=== PATIENT | male | born 1975 | race Caucasian/White ===

== ENCOUNTER 2016-09-04 11:47 | Emergency (ER) | payer SELFPAY ==
[~2016-09-04] VITALS: Ht 167.6 cm; Wt 79.5 kg
[2016-09-04 11:50] VITALS: BP 121/64; PULSE 51; PULSE 57; RESP 20; TEMP 98.1; O2SAT 97
--- NOTE | 2016-09-04 12:26 | PD ---
HPI Chief Complaint: Flank/Kidney Pain Time Seen by Provider: 12:26 Travel History International Travel<30 days: No Contact w/Intl Traveler<30days: No Traveled to known affect area: No History of Present Illness HPI 40-year-old male presents to the emergency Department with complaint of right- sided flank pain and right lower quadrant abdominal pain that started yesterday. Vision has history of right-sided kidney stones and pain is consistent with passed kidney stone pain. Pain is constant and worsening. Patient reports decreased urine output and dysuria. This is only getting drops of urine. No change in stool. Denies fever. Reports nausea with vomiting today. Has not taken any medications or tried any treatments to relieve his symptoms. History of kidney stones. Does not have an established primary care provider. Denies allergies. No other modifying Factors or associated signs and symptoms. PFSH Past Medical History Kidney Stones: Yes Tetanus Vaccination: > 5 Years Influenza Vaccination: No Past Surgical History Surgical History: No Previous Surgery Social History Alcohol Use: No Tobacco Use: Yes (CHEWING TOBACCO) Substance Use: No Allergies-Medications (Allergen,Severity, Reaction): Coded Allergies: No Known Allergies (Unverified , 09/04/16) Reported Meds & Prescriptions Reported Meds & Active Scripts Active Phenergan (Promethazine HCl) 25 Mg Tab 25 Mg PO Q6H PRN [place] (Hydrocodone-Acetaminophen) 5-325 mg Tab 1 Tab PO Q4H PRN Review of Systems Except as stated in HPI: all other systems reviewed are Neg Physical Exam Narrative GENERAL: Well-nourished, well-developed male patient, in no acute distress SKIN: Warm and dry. No rash. HEAD: Atraumatic. Normocephalic. EYES: Pupils equal and round. No scleral icterus. No injection or drainage. ENT: Mucosa pink and moist. NECK: Trachea midline. CARDIOVASCULAR: Regular rate and rhythm. No murmur appreciated. RESPIRATORY: No accessory muscle use. Clear to auscultation. Breath sounds equal bilaterally. GASTROINTESTINAL: Abdomen soft, right lower quadrant tenderness on palpation, nondistended. Hepatic and splenic margins not palpable. Bowel sounds are active 4 quadrants. Bladder nontender and nondistended. MUSCULOSKELETAL: No obvious deformities. No clubbing. No cyanosis. No edema. BACK: Right CVA tenderness NEUROLOGICAL: Awake and alert. Oriented 3. No obvious cranial nerve deficits. Motor grossly within normal limits. Normal speech. Moves all extremities. 5/5 strength to all extremities. PSYCHIATRIC: Appropriate mood and affect; insight and judgment normal. Data Data Last Documented VS Vital Signs Date Time Temp Pulse Resp B/P Pulse Ox O2 Delivery O2 Flow Rate FiO2 09/04/16 14:00 52 18 94/54 97 Room Air 09/04/16 11:50 98.1 Orders Ketorolac Inj (Toradol Inj) (09/04/16 12:30) Complete Blood Count With Diff (09/04/16 12:26) Comprehensive Metabolic Panel (09/04/16 12:26) Urinalysis - C+S If Indicated (09/04/16 12:26) Ct Abd/Pel W/O Iv Contrast (09/04/16 12:26) Iv Access Insert/Monitor (09/04/16 12:26) Ecg Monitoring (09/04/16 12:26) Oximetry (09/04/16 12:26) Ondansetron Inj (Zofran Inj) (09/04/16 12:30) Labs Laboratory Tests Test 09/04/16 12:50 White Blood Count 14.6 TH/MM3 Red Blood Count 4.72 MIL/MM3 Hemoglobin 14.7 GM/DL Hematocrit 41.6 % Mean Corpuscular Volume 88.0 FL Mean Corpuscular Hemoglobin 31.0 PG Mean Corpuscular Hemoglobin 35.2 % Concent Red Cell Distribution Width 12.1 % Platelet Count 249 TH/MM3 Mean Platelet Volume 8.1 FL Neutrophils (%) (Auto) 84.7 % Lymphocytes (%) (Auto) 7.8 % Monocytes (%) (Auto) 6.6 % Eosinophils (%) (Auto) 0.6 % Basophils (%) (Auto) 0.3 % Neutrophils # (Auto) 12.4 TH/MM3 Lymphocytes # (Auto) 1.1 TH/MM3 Monocytes # (Auto) 1.0 TH/MM3 Eosinophils # (Auto) 0.1 TH/MM3 Basophils # (Auto) 0.0 TH/MM3 CBC Comment DIFF FINAL Differential Comment Urine Color YELLOW Urine Turbidity CLEAR Urine pH 6.0 Urine Specific [place] 1.029 Urine Protein TRACE mg/dL Urine Glucose (UA) NEG mg/dL Urine Ketones TRACE mg/dL Urine Occult Blood MOD Urine Nitrite NEG Urine Bilirubin NEG Urine Urobilinogen LESS THAN 2.0 MG/DL Urine Leukocyte Esterase NEG Urine RBC 2 /hpf Urine WBC 2 /hpf Urine Calcium Oxalate Crystals OCC /hpf Urine Mucus FEW /lpf Microscopic Urinalysis Comment CULT NOT INDICATED Sodium Level 137 MEQ/L Potassium Level 4.1 MEQ/L Chloride Level 102 MEQ/L Carbon Dioxide Level 26.8 MEQ/L Anion Gap 8 MEQ/L Blood Urea Nitrogen 23 MG/DL Creatinine 1.74 MG/DL Estimat Glomerular Filtration 44 ML/MIN Rate Random Glucose 128 MG/DL Calcium Level 8.7 MG/DL Total Bilirubin 0.5 MG/DL Aspartate Amino Transf 18 U/L (AST/SGOT) Alanine Aminotransferase 31 U/L (ALT/SGPT) Alkaline Phosphatase 50 U/L Total Protein 7.0 GM/DL Albumin 4.0 GM/DL [facility] Medical Decision Making Medical Screen Exam Complete: Yes Emergency Medical Condition: Yes Medical Record Reviewed: Yes Differential Diagnosis Cholelithiasis, appendicitis, pyelonephritis Narrative Course 40-year-old male with right flank pain and right lower quadrant abdominal pain. Patient arrived via EMS. IV site and fluid bolus running upon arrival. Patient placed on cardiopulmonary monitoring. Labs ordered. CT abdomen ordered. 1330: WBC 14.6. BUN 23. Creatinine 1.74. GFR 44. Urinalysis with no signs of infection; with calcium oxylate crystal and urine occult blood; urine RBCs 2. Last 24 hours Impressions Abdomen/Pelvis CT 09/04/16 1226 Signed Impressions: Service Date/Time: Sunday, September 04, 2016 14:04 - CONCLUSION: 1. The examination demonstrates a 6 mm stone in the distal right ureter. This is approximately 5-7 CM above the ureterovesicular junction. There are moderate post obstructive changes around the right kidney. Blaze Gonzalez MD The patient was discharged home with Phenergan and [place]. Scripts Promethazine (Phenergan)25 Mg Tab25 Mg PO Q6H PRN (Nausea/Vomiting) #10 TAB Ref 0 Prov:Aixa Mike MD 09/04/16 Hydrocodone-Acetaminophen ([place])5-325 mg Tab1 Tab PO Q4H PRN (PAIN) #20 TAB Ref 0 Prov:Aixa Mike MD 09/04/16 [place] Sep 04, 2016 12:26
[2016-09-04] MEDS ORDERED: ONDANSETRON HCL 4 MG/2 ML VIAL IV PUSH ONE (12:30)
[2016-09-04] MEDS ORDERED: KETOROLAC TROMETHAMINE 30 MG/ML (IVP) VIAL IV PUSH ONE (12:30)
[2016-09-04 13:00] VITALS: BP 105/55; PULSE 56; RESP 18; O2SAT 97
[2016-09-04 13:05] LABS: AUTOMATED NEUTROPHIL # 12.4 TH/MM3 (1.8-7.7); BASOPHIL % 0.3 % (0.0-2.0); EOSINOPHIL # 0.1 TH/MM3 (0-0.4); EOSINOPHIL % 0.6 % (0.0-4.0); HEMATOCRIT 41.6 % (39.0-51.0); HEMO FLAGS DIFF FINAL; LYMPH % 7.8 % (9.0-44.0); LYMPHOCYTE # 1.1 TH/MM3 (1.0-4.8); MEAN CORPUSCULAR HGB CONC 35.2 % (32.0-36.0); MONO % 6.6 % (0.0-8.0); NEUT % 84.7 % (16.0-70.0); PLATELET COUNT 249 TH/MM3 (150-450); RED BLOOD COUNT 4.72 MIL/MM3 (4.50-5.90); RED CELL DISTRIBUTION WIDTH 12.1 % (11.6-17.2); WHITE BLOOD COUNT 14.6 TH/MM3 (4.0-11.0)
[2016-09-04 13:13] LABS: BLOOD, URINE MOD (NEG); CALCIUM OXALATE CRYSTALS,URINE OCC /hpf; COMMENT (UR) CULT NOT INDICATED; CULTURE IF INDICATED CULT NOT INDICATED; GLUCOSE,URINE NEG (NEG); KETONE, URINE TRACE mg/dL (NEG); MUCUS URINE FEW /lpf (OCC); NITRITE,URINE NEG (NEG); URINE COLOR YELLOW (YELLW/STRAW)
--- NOTE | 2016-09-04 13:16 | PD ---
Data Data Last Documented VS Vital Signs Date Time Temp Pulse Resp B/P Pulse Ox O2 Delivery O2 Flow Rate FiO2 09/04/16 13:00 56 18 105/55 97 Room Air 09/04/16 11:50 98.1 Orders Ketorolac Inj (Toradol Inj) (09/04/16 12:30) Complete Blood Count With Diff (09/04/16 12:26) Comprehensive Metabolic Panel (09/04/16 12:26) Urinalysis - C+S If Indicated (09/04/16 12:26) Ct Abd/Pel W/O Iv Contrast (09/04/16 12:26) Iv Access Insert/Monitor (09/04/16 12:26) Ecg Monitoring (09/04/16 12:26) Oximetry (09/04/16 12:26) Ondansetron Inj (Zofran Inj) (09/04/16 12:30) Labs Laboratory Tests Test 09/04/16 12:50 White Blood Count 14.6 TH/MM3 Red Blood Count 4.72 MIL/MM3 Hemoglobin 14.7 GM/DL Hematocrit 41.6 % Mean Corpuscular Volume 88.0 FL Mean Corpuscular Hemoglobin 31.0 PG Mean Corpuscular Hemoglobin 35.2 % Concent Red Cell Distribution Width 12.1 % Platelet Count 249 TH/MM3 Mean Platelet Volume 8.1 FL Neutrophils (%) (Auto) 84.7 % Lymphocytes (%) (Auto) 7.8 % Monocytes (%) (Auto) 6.6 % Eosinophils (%) (Auto) 0.6 % Basophils (%) (Auto) 0.3 % Neutrophils # (Auto) 12.4 TH/MM3 Lymphocytes # (Auto) 1.1 TH/MM3 Monocytes # (Auto) 1.0 TH/MM3 Eosinophils # (Auto) 0.1 TH/MM3 Basophils # (Auto) 0.0 TH/MM3 CBC Comment DIFF FINAL Differential Comment Urine Color YELLOW Urine Turbidity CLEAR Urine pH 6.0 Urine Specific [place] 1.029 Urine Protein TRACE mg/dL Urine Glucose (UA) NEG mg/dL Urine Ketones TRACE mg/dL Urine Occult Blood MOD Urine Nitrite NEG Urine Bilirubin NEG Urine Urobilinogen LESS THAN 2.0 MG/DL Urine Leukocyte Esterase NEG Urine RBC 2 /hpf Urine WBC 2 /hpf Urine Calcium Oxalate Crystals OCC /hpf Urine Mucus FEW /lpf Microscopic Urinalysis Comment CULT NOT INDICATED Sodium Level 137 MEQ/L Potassium Level 4.1 MEQ/L Chloride Level 102 MEQ/L Carbon Dioxide Level 26.8 MEQ/L Anion Gap 8 MEQ/L Blood Urea Nitrogen 23 MG/DL Creatinine 1.74 MG/DL Estimat Glomerular Filtration 44 ML/MIN Rate Random Glucose 128 MG/DL Calcium Level 8.7 MG/DL Total Bilirubin 0.5 MG/DL Aspartate Amino Transf 18 U/L (AST/SGOT) Alanine Aminotransferase 31 U/L (ALT/SGPT) Alkaline Phosphatase 50 U/L Total Protein 7.0 GM/DL Albumin 4.0 GM/DL MDM Supervised Visit with [facility]: Yes Narrative Course I, Dr. Mike, have reviewed the advance practice practioner's documentation and am in agreement, met with the patient face to face, made the diagnosis, and the medical decision making was done by me. *My assessment and Findings: 40-year-old male with history of ureterolithiasis here with complaint of right sided flank pain that radiates in the abdomen times one day. Associated nausea, vomiting. Bowel movements regular. Patient states that this is similar to his history of stones, but the pain in the abdomen seems to be worse. No fevers or chills. No previous abdominal surgery. Patient does have some right sided CVA tenderness but point tenderness greatest at [place]Burney's. Differential includes ureterolithiasis, UTI/ pyelonephritis, appendicitis and less likely hepatobiliary pathology laboratory workup notable for mild leukocytosis of 14. Urine with scant blood and oxalate crystals. CT with a 6 mm stone in the right distal ureter. Moderate postobstructive changes. Patient's symptoms are controlled and he will be discharged home with outpatient urology follow-up and symptomatic management. Diagnosis Primary Impression: Ureterolithiasis Referrals: Chau Srivastava MD as needed Urologist as needed Additional Instruction: Pain and nausea medications as needed. Follow-up with urologist if symptoms persist and return to the ER for the warning signs discussed. Med/Other Pt SpecificInfo: Prescription(s) given Scripts Promethazine (Phenergan)25 Mg Tab25 Mg PO Q6H PRN (Nausea/Vomiting) #10 TAB Ref 0 Prov:Aixa Mike MD 09/04/16 Hydrocodone-Acetaminophen ([place])5-325 mg Tab1 Tab PO Q4H PRN (PAIN) #20 TAB Ref 0 Prov:Aixa Mike MD 09/04/16 Disposition: 01 DISCHARGE HOME Condition: Stable Aixa Mike MD Sep 04, 2016 13:15
[2016-09-04 13:20] LABS: ANION GAP 8 MEQ/L (5-15); AST (GOT) 18 U/L (15-37); BICARBONATE 26.8 MEQ/L (21.0-32.0); BLOOD UREA NITROGEN 23 MG/DL (7-18); CHLORIDE 102 MEQ/L (98-107); GLOMERULAR FILTRATION RATE 44 ML/MIN (>89); POTASSIUM 4.1 MEQ/L (3.5-5.1); SODIUM (NA) 137 MEQ/L (136-145)
[2016-09-04 13:24] LABS: ALKALINE PHOSPHATASE 50 U/L (45-117); ALT (GPT) 31 U/L (12-78); TOTAL BILIRUBIN ADULT 0.5 MG/DL (0.2-1.0)
[2016-09-04 14:00] VITALS: BP 94/54; PULSE 52; RESP 18; O2SAT 97
--- NOTE | 2016-09-04 14:44 | RADRPT ---
EXAM DATE/TIME: 09/04/2016 14:04 [place] COMPARISON: No previous studies available for comparison. INDICATIONS : Right flank pain with nausea and vomiting. ORAL CONTRAST: No oral contrast ingested. RADIATION DOSE: 14.74 CTDIvol (mGy) MEDICAL HISTORY : Renal calculi. SURGICAL HISTORY : None. ENCOUNTER: Initial ACUITY: 2 days PAIN SCALE: 7/10 LOCATION: Right flank TECHNIQUE: Volumetric scanning of the abdomen and pelvis was performed. Using automated exposure control and ad justment of the mA and/or kV according to patient size, radiation dose was kept as low as reasonably achievable to obtain optimal diagnostic quality images. FINDINGS: Right kidney/ureter: There are mild hydronephrotic changes aerated there are postobstructive changes surrounding the right kidney. The right ureter is dilated down to the level of the low pelvis. There is a 6 mm stone evide nt in the distal portions of the right ureter. Left kidney/ureter: The left kidney is normal in size. There is no hydronephrosis. The left ureter is followed throughout its course and is unremarkable in appearance. No stones are seen. Bladder: The contours of the bladder are unremarkable by CT. CT source data: The limited portion of the lung base visualized demonstrates a 6 mm calcified granuloma at the left l paul base. The appearance of the liver, spleen, pancreas, adrenal glands and kidneys is within normal limits. There is no retroperitoneal adenopathy. No free air free fluid is seen. The abdominal aorta i s normal in caliber. There are small bilateral inguinal hernias. CONCLUSION: 1. The examination demonstrates a 6 mm stone in the distal right ureter. This is approximately 5-7 CM above the ureterovesicular junction. There are moderate post obstructive changes around the right ki dney. Blaze Gonzalez MD on September 04, 2016 at 14:41 Board Certified Radiologist. This report was verified electronically.
[2016-09-04] MEDS ORDERED: NORC5TAB PO (14:51)
[2016-09-04] MEDS ORDERED: PROM25TA5 PO (14:51)
== END 2016-09-04 15:24 | disposition home or self-care (01) ==
LOC: NEPD 11:47
DX: N20.1 Calculus of ureter (principal); R11.2 Nausea with vomiting, unspecified; Z72.0 Tobacco use; Z87.442 Personal history of urinary calculi
CPT/HCPCS: 74176; 80053; 81001; 85025; 96374; 96375; 99284; J1885; J2405